=== PATIENT | male | born 1960 ===

== ENCOUNTER → 2025-10-06 07:47 | Outpatient (BNVA) | payer MEDICARE, OTHER, SELFPAY | PROVIDERS: Family Provider Family Medicine; Visit Provider Nurse Practitioner Family | DX: L40.0 Psoriasis vulgaris (principal); L40.59 Other psoriatic arthropathy; L57.0 Actinic keratosis | CPT/HCPCS: 17000; 99204 ==

== ENCOUNTER 2025-11-05 11:33 | Outpatient (CLI) | payer MEDICARE, OTHER, SELFPAY | END 2025-11-05 11:34 | disposition home or self-care (01) | LOC: RAD 11:36 | PROVIDERS: Visit Provider Nurse Practitioner Family | DX: L40.0 Psoriasis vulgaris (principal) | CPT/HCPCS: 36415; 86480 ==